=== PATIENT | male | born 1995 | race Two or more races ===

== ENCOUNTER 2023-12-25 01:02 | Emergency (ER) | payer OTHER ==
[2023-12-25 01:09] VITALS: BP 122/74; PULSE 72; RESP 14; TEMP 99; BMI 23.5
[2023-12-25] MEDS ORDERED: IBUPROFEN 600 MG TABLET (FP) PO ONE (01:30)
[2023-12-25] MEDS: IBUPROFEN 600 MG TABLET (FP) PO ONE (01:34)
== END 2023-12-25 02:12 | disposition home or self-care (01) ==
LOC: FER 01:02
DX: M25.572 Pain in left ankle and joints of left foot (principal); S93.402A Sprain of unspecified ligament of left ankle, initial encounter; X50.1XXA Overexertion from prolonged static or awkward postures, initial encounter; Y93.01 Activity, walking, marching and hiking
CPT/HCPCS: 73610-TC-LT-FY; 73630-TC-LT; 99283-25